=== PATIENT | female | born 1945 | race Caucasian/White ===

== ENCOUNTER 2016-09-20 14:04 | Emergency (ER) | payer MEDICARE ==
[~2016-09-20] VITALS: Ht 170.2 cm; Wt 81.6 kg
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
--- NOTE | 2016-09-20 14:18 | NUR ---
DR HERNANDEZ AT BEDSIDE FOR EVAL.
[2016-09-20] MEDS ORDERED: HYDROCODONE/APAP 10/325MG 1 EA TABLET PO ONE (14:30)
[2016-09-20] MEDS ORDERED: ONDANSETRON 4 MG TAB.RAPDIS SL ONE (14:30)
[2016-09-20] MEDS ORDERED: ONDANSETRON 4 MG TAB.RAPDIS ONE (14:33)
[2016-09-20] MEDS ORDERED: HYDROCODONE/APAP 10/325MG 1 EA TABLET ONE (14:34)
[2016-09-20 15:44] VITALS: BP 126/81
== END 2016-09-20 15:44 | disposition home or self-care (01) ==
LOC: ER 14:10
DX: S40.011A Contusion of right shoulder, initial encounter (principal); S20.211A Contusion of right front wall of thorax, initial encounter; S40.022A Contusion of left upper arm, initial encounter; E03.9 Hypothyroidism, unspecified; I10 Essential (primary) hypertension; Z96.641 Presence of right artificial hip joint; E11.9 Type 2 diabetes mellitus without complications; V43.52XA Car driver injured in collision with other type car in traffic accident, initial encounter; Y93.89 Activity, other specified; Y92.488 Other paved roadways as the place of occurrence of the external cause; Y99.8 Other external cause status
CPT/HCPCS: 71020; 73030; 73060; 99284; A4606; Q0162; Z7610